=== PATIENT | male | born 1945 | race Caucasian/White ===

== ENCOUNTER 2022-07-29 12:23 | Day surgery (SDC) | payer MEDICARE ==
[~2022-07-29] VITALS: Ht 190.5 cm; Wt 84.5 kg
[~2022-07-29 12:23] MED LIST: AMOX500 PO; ASPI81CH PO; ESOM20; FEXPSEER PO; FISH1000 PO; Garlic1 EAC1 PO; Hair, Skin & N1 EACH PO; LISI5 PO; POLY500 PO; SUDAFED 12-HOU120 MG
[2022-07-29] MEDS ORDERED: METO25ER (13:37)
[2022-07-29] MEDS ORDERED: AMLO5 (13:37)
[2022-07-29] MEDS ORDERED: ZOCOR20 MG (13:37)
[2022-07-29] MEDS ORDERED: ERGO400 (13:37)
--- NOTE | 2022-07-29 14:04 | NUR ---
07/29/22 1404 Kera Laughlin ATTEMPTS AT IV. FIRST ATTEMPT IN R HAND BY JULISA MAGAÑA. SECOND ATTEMPT IN R FORARM SUCESSFUL BY
== END 2022-07-29 16:31 | disposition home or self-care (01) ==
LOC: ORSCSDS 12:23
DX: Z12.11 Encounter for screening for malignant neoplasm of colon (principal); D12.0 Benign neoplasm of cecum; D12.4 Benign neoplasm of descending colon; K63.5 Polyp of colon; D12.8 Benign neoplasm of rectum; K64.8 Other hemorrhoids; K57.30 Diverticulosis of large intestine without perforation or abscess without bleeding; E78.2 Mixed hyperlipidemia; I10 Essential (primary) hypertension; Z79.899 Other long term (current) drug therapy
CPT/HCPCS: J0330; J0461; J2405; J2704; J7120; Q9968